=== PATIENT | female | born 1980 | race Caucasian/White ===

== ENCOUNTER 2025-09-13 16:32 | Outpatient (CLI) | payer BC, SELFPAY ==
[2025-09-13] MEDS: 0.9 % SODIUM CHLORIDE 1000ML 1,000 ML 999 ML IV (16:32)
== END 2025-09-13 23:59 | disposition home or self-care (01) ==
PROVIDERS: PCP Family Medicine; Visit Provider Family Medicine
DX: R30.0 Dysuria (principal); R10.A0 Flank pain, unspecified side
CPT/HCPCS: 96365; J7030